=== PATIENT | female | born 1990 | race Caucasian/White ===

== ENCOUNTER 2017-12-03 16:00 | Emergency (ER) | payer OTHER ==
[~2017-12-03] VITALS: Ht 162.6 cm; Wt 59.0 kg
[2017-12-03 17:34] LABS: BASOPHILS % 0.6 % (0.0-2.0); EOSINOPHILS % 0.6 % (0.0-5.0); HEMATOCRIT. 34.8 % (36.0-48.0); HEMOGLOBIN. 11.5 g/dL (12.0-16.0); LYMPHOCYTES % 15.3 % (20.0-50.0); MEAN CORPUSCULAR HEMOGLOBIN 28.8 pg (28.0-32.0); MEAN PLATELET VOLUME 8.9 fl (7.4-10.4); MONOCYTES % 10.3 % (2.0-8.0); NEUTROPHILS % 73.2 % (40.0-76.0); PLATELET 298 x1000/uL (130-400); RED CELL DISTRIBUTION WIDTH 14.5 % (11.6-14.6)
[2017-12-03 17:38] LABS: CHLORIDE 105 mEq/L (98-107)
[2017-12-03 17:44] LABS: ETHANOL BLOOD < 10 mg/dL
[2017-12-03] MEDS ORDERED: LORAZEPAM 1MG TABLET PO ONE (22:15)
[2017-12-03 23:53] VITALS: BP 120/68
== END 2017-12-03 23:57 | disposition home or self-care (01) ==
LOC: ER 16:00
DX: R45.851 Suicidal ideations (principal)
CPT/HCPCS: 36415; 80053; 85025; 99284; G0482